=== PATIENT | male | born 1970 | race Caucasian/White ===

== ENCOUNTER 2017-06-27 07:36 | Day surgery (SDC) | payer OTHER ==
[~2017-06-27] VITALS: Ht 177.8 cm; Wt 95.0 kg
[2017-06-27] VITALS (15 sets, daily range): BP systolic 117–145; BP diastolic 72–89; PULSE 89–128; RESP 11–20; Ht 177.8 cm; Wt 95.0 kg
--- NOTE | 2017-06-27 07:25 | HPN ---
Date/Time of Note Date/Time of Note DATE: 06/27/17 TIME: 07:25 Interval H&P Admission Note Pt. seen H&P reviewed: No system changes ERIN ACEVEDO MD Jun 27, 2017 07:25
[~2017-06-27 07:36] MED LIST: CEFAZOLIN 2 GM/50 ML (PMX) 50 ML IVPB ONE
[2017-06-27] MEDS ORDERED: PROPOFOL 20 ML ONE (09:07)
[2017-06-27] MEDS ORDERED: ONDANSETRON 4 MG INJ ONE (09:07)
[2017-06-27] MEDS ORDERED: CEFAZOLIN 1 GM INJ ONE (09:07)
[2017-06-27] MEDS ORDERED: FENTAnyl 50 MCG/ML VIAL ONE ×2 (09:07→10:03)
[2017-06-27] MEDS ORDERED: MIDAZOLAM 1 MG/ML 2 ML INJ ONE (09:07)
[2017-06-27] MEDS ORDERED: IOHEXOL 300MG/ML 30 ML BTL ONE ×2 (09:29→10:08)
[2017-06-27] MEDS ORDERED: EPHEDrine SULFATE 50 MG/5 ML SYG ONE (09:51)
[2017-06-27] MEDS ORDERED: DIPHENHYDRAMINE 50 MG INJ IV PRN (10:00)
[2017-06-27] MEDS ORDERED: HYDROmorphONE (0.2 MG/ML) 10ML SYG IV PRN ×3 (10:00)
[2017-06-27] MEDS ORDERED: MEPERIDINE 25 MG INJ IV PRN (10:00)
[2017-06-27] MEDS ORDERED: METOCLOPRAMIDE 10 MG INJ IV PRN (10:00)
[2017-06-27] MEDS ORDERED: OXYCODONE/ACETAMINOPHEN (5/325) TAB PO PRN ×2 (10:00)
[2017-06-27] MEDS ORDERED: ONDANSETRON 4 MG INJ IV PRN ×2 (10:00→11:00)
[2017-06-27] MEDS ORDERED: FUROSEMIDE 20 MG INJ ONE (10:20)
[2017-06-27] MEDS ORDERED: HYDROCODONE/APAP (5/325) TAB PO PRN (11:00)
--- NOTE | 2017-06-27 11:09 | OPR ---
Date/Time of Note Date/Time of Note DATE: 06/27/17 TIME: 11:03 Operative Report Preoperative Diagnosis Left renal stones Postoperative Diagnosis Left renal stones Operation/Procedure Performed Left extracorporeal shockwave lithotripsy, cystoscopy and insertion of left ureteral catheter and retrograde pyelograms Surgeon see signature line Bulb Weeder None Anesthesia Type: general Anesthesiologist: ARIELA THORNTON MD Estimated Blood Loss: 0 - 10 ml's Transfusion none Specimen None Grafts/Implants none Complications none Pt Condition Post Procedure: stable Disposition: PACU Indications Left renal stones, the stones are radiolucent Procedure Description The patient was brought to the operating room, general anesthesia was induced. Patient received 2 g of Ancef IV at the start of the procedure. The patient was positioned in the lithotomy position on the lithotripsy machine table in the genital area was prepped and draped in the usual sterile manner. #21 [place] cystoscope sheath was introduced under direct vision through the penile urethra all the way to the bladder. The left ureteral orifice was visualized and cannulated with a 5 [place] open ended ureteral catheter. The ureteral catheter was advanced all the way up to the upper ureter just below the ureteropelvic junction . the scope was then removed and a 16 [place] Moya catheter was inserted into the bladder. The ureteral catheter was taped to the Moya catheter so it will not be dislodged. Then the patient was repositioned in the supine position. Contrast material was injected into the ureteral catheter to visualize the collecting system of the left kidney. The electromagnetic shockwave lithotripsy was then given mostly to the lower pole calyx as that was the area that had the radiolucent defect in it. We also gave about cells in shocks to the renal pelvis as the stone was initially in the renal pelvis on the CT scan. The patient was given 10 mg of Lasix when the urine was noted to be bloody. A total of 3000 shockwaves were delivered. The patient tolerated the procedure well and was transferred to the recovery room in a stable and satisfactory condition. ERIN ACEVEDO MD Jun 27, 2017 11:09
--- NOTE | 2017-06-29 11:13 | RADRPT ---
PROCEDURE: Intraoperative fluoroscopy CLINICAL INDICATION: pain TECHNIQUE: Fluoroscopic spot images from an intraoperative procedure submitted. Fluoro time: 209 sec Number of images/fluoroscopic sequences: 30 COMPARISON: none FINDINGS: Fluoroscopic images of the mid abdomen and pelvis demonstrate contrast within the left collecting sy stem. RPTAT: AA IMPRESSION: Contrast within the left collecting system. Please refer to the operative note for more information. .Joaquin Burgess MD, MD Date Time Electronically viewed and signed by .Joaquin Burgess MD, on 06/29/2017 11:12 .S/
== END 2017-06-27 13:00 | disposition home or self-care (01) ==
LOC: SDS 07:36
PROVIDERS: ATTEND Urology
DX: N20.0 Calculus of kidney (principal); I10 Essential (primary) hypertension
CPT/HCPCS: 52353; 74420; J0690; J1940; J2250; J2405; J3010; Q9967; Z7512; Z7610